=== PATIENT | male | born 2000 | race African-American/Black ===

== ENCOUNTER 2020-12-17 21:50 | Emergency (ER) | payer OTHER, MEDICAID, SELFPAY ==
[2020-12-17 22:02] VITALS: BP 132/75; PULSE 86; RESP 18; TEMP 36.6; O2SAT 99; BMI 24.4
--- NOTE | 2020-12-18 02:31 | ED_ITS ---
HPI - Headache General Chief Complaint: Headache Stated Complaint: back of head headache Time Seen by Provider: 12/18/20 02:31 Mode of arrival: Ambulatory Limitations: no limitations History of Present Illness HPI Narrative: Otherwise healthy 20-year-old gentleman with 2 full times jobs and attending college presents with a week of intermittent headaches that seem to be based at the occiput. He does not complain of fever, cough, chills, chest pain. He does note that he has been working quite a bit recently. He does not have a history of chronic headaches. He is wanting of his pillow might be contributing. He has found that occasional ibuprofen is helpful. Review of Systems Review of Systems Narrative: Remainder of complete review of systems is otherwise unremarkable except for that included in the HPI. Patient History Social History Smoking Status: Never smoker Smoking Status: Never smoker alcohol intake frequency: a few times a month Substance Use Type: does not use Exam Narrative Exam Narrative: General: Healthy appearing, in no acute distress. Able to give a complete and coherent history. Well-nourished well-developed HEENT: Moist mucous membranes, normal sclera with reactive pupils, Neck: Tenderness at the occipital insertions bilaterally with bilateral trapezius muscle spasm. Respiratory: Lungs are clear to auscultation, no wheezing no rales no rhonchi. Full and symmetrical air movement Cardiac: Regular rate and rhythm no murmurs no bruits Neurologic: Grossly neurologically intact with no obvious asymmetries or abnormalities Extremities: No trauma, well perfused Psych: Cooperative, appropriate insight and affect Initial Vital Signs Initial Vital Signs: Vital Signs Temperature 97.9 F 12/17/20 22:02 Pulse Rate 86 12/17/20 22:02 Respiratory Rate 18 12/17/20 22:02 Blood Pressure 132/75 12/17/20 22:02 Pulse Oximetry 99 12/17/20 22:02 Course Vital Signs Vital signs: Vital Signs - 8 hr 12/17/20 22:02 Temperature 97.9 F Pulse Rate 86 Respiratory Rate 18 Blood Pressure 132/75 Pulse Oximetry 99 MDM - Headache MDM Narrative Medical decision making narrative: 20-year-old gentleman presents with a week of intermittent headaches that I suspect a musculoskeletal in nature. There is no evidence of trauma, infection, acute neurologic compromise. He is tender at the occipital insertions and has paraspinous tenderness along the cervical spine and into the trapezius muscles. Had an extended wait in the emergency room and had a long nap while he was waiting for my exam and when he awoke he was completely pain free without additional medical intervention. Reviewed organ on mix, suggested pillow changes, ibuprofen and Tylenol if needed and making sure he is getting enough sleep overall. He is safe for home discharge Discharge Plan Departure Patient Disposition: Home Clinical Impression: Headache Qualifiers: Headache type: unspecified Headache chronicity pattern: acute headache Intractability: not intractable Qualified Code(s): R51.9 - Headache, unspecified Neck muscle strain Qualifiers: Encounter type: initial encounter Qualified Code(s): S16.1XXA - Strain of muscle, fascia and tendon at neck level, initial encounter Instructions: DI for Headache, DI for Muscle Spasm Activity Restrictions/Additional Instructions: Thank you for coming in today I think that your headaches are being caused by neck muscle strain. I suspect the neck muscle strain is from computer screen and phone time, and may be made worse by your current pillows. At this time there is no indication of a life-threatening cause for your he adaches. See if you can readjust the ergonomics of your computers and phone time. I would encourage you to did try different pillows and see if they help. Ice and heat to the back of your neck may prove helpful as well. Using 400 mg of ibuprofen (2 [id number] pills) and 1 Tylenol every 6 hours can be very helpful in controlling pain. I hope this helps. I wish you the best
== END 2020-12-18 02:47 | disposition home or self-care (01) ==
PROVIDERS: Emergency Provider Emergency Medicine
DX: R51.9 Headache, unspecified (principal); S16.1XXA Strain of muscle, fascia and tendon at neck level, initial encounter; X58.XXXA Exposure to other specified factors, initial encounter
CPT/HCPCS: 99281

== ENCOUNTER 2021-07-29 17:11 | Emergency (ER) | payer OTHER, MEDICAID, SELFPAY ==
[2021-07-29 17:21] VITALS: BP 137/71; PULSE 65; RESP 14; TEMP 36.8; O2SAT 100; BMI 24.4
--- NOTE | 2021-07-29 17:26 | DI.RAD.S_ITS ---
PROCEDURE: XR ANKLE LT MIN 3V INDICATIONS: left ankle injury/pain TECHNIQUE: 3 views of the ankle were acquired. COMPARISON: None. FINDINGS: Bones: No acute fractures or dislocations. Ankle mortise is normally aligned. No suspicious bony lesions. Small plantar calcaneal enthesophyte. Soft tissues: Soft tissue edema is seen surrounding the ankle, slightly more prominent medially. IMPRESSION: No acute osseous abnormality. If clinical suspicion and/or symptoms persist, additional imaging with repeat plain films, or advanced imaging (e.g. CT, MRI) may be helpful for further assessment. Dictated by: Benny Leong M.D. on 07/29/2021 at 17:57 Approved by: Benny Leong M.D. on 07/29/2021 at 17:58
--- NOTE | 2021-07-29 17:33 | DI.RAD.S_ITS ---
PROCEDURE: XR KNEE LT 3V INDICATIONS: injury/pain TECHNIQUE: 3 views of the knee were acquired. COMPARISON: None. FINDINGS: Bones: No acute fractures or dislocations. No suspicious bony lesions. Soft tissues: No joint effusion. No suspicious soft tissue calcifications. IMPRESSION: No acute osseous abnormality. If clinical suspicion and/or symptoms persist, additional imaging with repeat plain films, or advanced imaging (e.g. CT, MRI) may be helpful for further assessment. Dictated by: Benny Leong M.D. on 07/29/2021 at 17:58 Approved by: Benny Leong M.D. on 07/29/2021 at 17:59
--- NOTE | 2021-07-29 17:45 | ED_ITS ---
HPI - Extremity Injury (Lower) <MARGA Coley - Last Filed: 07/29/21 19:06> General Chief Complaint: Extremity Injury, Lower Stated Complaint: Left ankle numb, tripped Time Seen by Provider: 07/29/21 17:30 Source: patient Mode of arrival: Ambulatory History of Present Illness HPI Narrative: This is a 21-year-old male without significant medical history who presents to the emergency department complaining a left ankle injury which occurred last night while playing basketball. Patient states that he accidentally stepped on another player's foot causing his left ankle to roll, he states he has been ameya ble to bear any weight on this ankle, most of the pain is on the lateral aspect, he denies any pain on the plantar surface, states that last night he had numbness along the lateral aspect of his ankle. He took 200 mg of ibuprofen early this morning, states that he took ibuprofen last night which helped as well. He has been using ice, resting and elevating. He states he isn't able to dorsiflex very well, plantar extension without difficulty. Related Data Previous Rx's Medication Instructions Recorded hydrocodone 5 mg-acetaminophen 325 1 tab PO BID PRN #10 tab 07/29/21 mg tablet methocarbamol 500 mg tablet 500 mg PO TID PRN #14 tab 07/29/21 Allergies Allergy/AdvReac Type Severity Reaction Status Date / Time No Known Drug Allergies Allergy Verified 07/29/21 17:47 Review of Systems <MARGA Coley - Last Filed: 07/29/21 19:06> Review of Systems Narrative: General: denies fever, chills Head/Neck: denies headache, neck pain Eyes: denies visual changes, eye pain Cardio: denies chest pain, palpitations Respiratory: denies shortness of breath, cough GI: denies abdominal pain, nausea, vomiting, or diarrhea : denies dysuria, hematuria or flank pain MSK: Endorses new left ankle pain and edema on the lateral aspect, denies muscle weakness, endorses mild left knee pain as well. Skin: denies rash, itching or wound Neuro: denies numbness, tingling, dizziness Patient History <MARGA Coley - Last Filed: 07/29/21 19:06> Social History Smoking Status: Never smoker Smoking Status: Never smoker alcohol intake frequency: a few times a month Substance Use Type: does not use Exam <MARGA Coley - Last Filed: 07/29/21 19:06> Narrative Exam Narrative: Independently reviewed vitals signs and nursing notes. General: cooperative, comfortable, in no acute distress, well groomed Head: atraumatic, symmetrical facial expressions Neck: supple Eyes: equal round and reactive, EOMI, conjunctiva normal Nose: nares patent, no rhinorrhea Mouth/Throat: moist mucus membranes Cardiovascular: regular rate and rhythm, no peripheral edema, warm extremities MSK: moves all extremities, neurovascularly intact, no weakness, normal tone, left ankle with tenderness over medial and lateral malleoli, tenderness over ATFL, CFL, no tenderness over Achilles tendon, proximal 5th metatarsal, or any of the metatarsals. No tenderness on plantar aspect, patient is not able to dorsiflex foot, states it is due to pain, plantar extension is intact however. Patient was fitted in a walking boot, he tolerated this moderately with pain. He was fitted with crutches and is able to ambulate without difficulty and no weight-bearing. Skin: brisk capillary refill, no rash, no erythema Neuro: normal speech and cognition, A&O x3 Psych: mental status is grossly normal, congruent mood, normal affect, pleasant and cooperative Initial Vital Signs Initial Vital Signs: Vital Signs Temperature 98.2 F 07/29/21 17:21 Pulse Rate 65 07/29/21 17:21 Respiratory Rate 14 07/29/21 17:21 Blood Pressure 137/71 07/29/21 17:21 Pulse Oximetry 100 07/29/21 17:21 <Jennie Richardson DO - Last Filed: 07/29/21 21:56> Initial Vital Signs Initial Vital Signs: Vital Signs Temperature 98.2 F 07/29/21 17:21 Pulse Rate 65 07/29/21 17:21 Respiratory Rate 14 07/29/21 17:21 Blood Pressure 137/71 07/29/21 17:21 Pulse Oximetry 100 07/29/21 17:21 Procedures <MARGA Coley - Last Filed: 07/29/21 19:06> Orthopedic Splinting/Casting Injury #1: Side: left Lower Extremity Injury Location: ankle Lower Extremity Immobilizer: boot orthosis Other Orthopedic Equipment: crutches Post splinting neuro exam: intact and no change Post splinting vascular exam: intact Placed by: Nursing Course <MARGA Coley - Last Filed: 07/29/21 19:06> Orders Ordered: ED Orders 07/29/21 17:26 XR ankle LT min 3V Stat 07/29/21 17:33 XR knee LT 3V Stat Discontinued Medications Acetaminophen (Acetaminophen 325 Mg Tablet) 975 mg PO NOW ONE Stop: 07/29/21 17:37 Last Admin: 07/29/21 17:54 Dose: 975 mg Documented by: JOSE Ketorolac Tromethamine (Ketorolac 30 Mg/Ml Vial) 15 mg IM NOW ONE Stop: 07/29/21 17:37 Last Admin: 07/29/21 17:53 Dose: Not Given Documented by: JOSE Vital Signs Vital signs: Vital Signs - 8 hr 07/29/21 17:21 07/29/21 18:15 Temperature 98.2 F Pulse Rate 65 75 Respiratory Rate 14 18 Blood Pressure 137/71 130/70 Pulse Oximetry 100 98 <Jennie Richardson DO - Last Filed: 07/29/21 21:56> Orders Ordered: ED Orders 07/29/21 17:26 XR ankle LT min 3V Stat 07/29/21 17:33 XR knee LT 3V Stat Discontinued Medications Acetaminophen (Acetaminophen 325 Mg Tablet) 975 mg PO NOW ONE Stop: 07/29/21 17:37 Last Admin: 07/29/21 17:54 Dose: 975 mg Documented by: JOSE Ketorolac Tromethamine (Ketorolac 30 Mg/Ml Vial) 15 mg IM NOW ONE Stop: 07/29/21 17:37 Last Admin: 07/29/21 17:53 Dose: Not Given Documented by: JOSE Vital Signs Vital signs: Vital Signs - 8 hr 07/29/21 17:21 07/29/21 18:15 Temperature 98.2 F Pulse Rate 65 75 Respiratory Rate 14 18 Blood Pressure 137/71 130/70 Pulse Oximetry 100 98 MDM - Extremity Injury (Lower) <MARGA Coley - Last Filed: 06/03/22 19:06> Imaging Data Extremity x-ray #1: Radiologist's Impression: PROCEDURE:? XR KNEE LT 3V ? INDICATIONS:? injury/pain ? TECHNIQUE:? 3 views of the knee were acquired.? ? COMPARISON:? None. ? FINDINGS:? ? Bones:? No acute fractures or dislocations.? No suspicious bony lesions.? ? Soft tissues:? No joint effusion.? No suspicious soft tissue calcifications.? ? ? IMPRESSION:? No acute osseous abnormality.? If clinical suspicion and/or symptoms persist, additional imaging with repeat plain films, or advanced imaging (e.g. CT, MRI) may be helpful for further assessment. ? ? Dictated by: Benny Leong M.D. on 07/29/2021 at 17:58 ? ? Approved by: Benny Leong M.D. on 07/29/2021 at 17:59 ? Extremity x-ray #2: Radiologist's Impression: PROCEDURE:? XR ANKLE LT MIN 3V ? INDICATIONS:? left ankle injury/pain ? TECHNIQUE:? 3 views of the ankle were acquired.? ? COMPARISON:? None. ? FINDINGS:? ? Bones:? No acute fractures or dislocations.? Ankle mortise is normally aligned.? No suspicious bony lesions.? Small plantar calcaneal enthesophyte. ? Soft tissues:? Soft tissue edema is seen surrounding the ankle, slightly more prominent medially. ? ? IMPRESSION:? No acute osseous abnormality.? If clinical suspicion and/or symptoms persist, additional imaging with repeat plain films, or advanced imaging (e.g. CT, MRI) may be helpful for further assessment. ? ? ? Dictated by: Benny Leong M.D. on 07/29/2021 at 17:57 ? ? Approved by: Benny Leong M.D. on 07/29/2021 at 17:58 ? MDM Narrative Medical decision making narrative: This is a 21-year-old male who presents emergency department with left ankle aaron n after he injured his left ankle while playing basketball last night. Patient states that he accidentally stepped on another player's foot, rolled his left ankle, has had pain and swelling since and is unable to bear weight. He has tenderness to his medial and lateral malleoli, over ATFL, CFL ligaments no tenderness over proximal 5th metatarsal Achilles tendon no plantar ecchymosis, was unable to dorsiflex his left foot due to pain, plantar extension without difficulty. Left ankle x-ray shows no acute osseous abnormality, soft tissue edema is seen surrounding the ankle and more prominent on the medial aspect. Knee pain, knee x-ray was obtained for concern about proximal fibular injury and left knee x-ray shows no acute osseous abnormality either. Patient had significant tenderness in those areas listed above, he was fitted in walking boot, instructed to follow up with Orthopedics, continue nonweightbearing, use crutches for ambulation, ice, elevate, use NSAIDs and Tylenol as needed for pain control, he was fitted in an Willie wrap prior to his walking boot, tolerate all this well. He is neurovascularly intact without any numbness or sensation changes. Patient is appropriate and amenable to discharge home. Vital signs are stable on repeat examination is unremarkable. Patient has been informed of results. Patient has been given strict return to ER precautions for any new or worsening symptoms. Patient understands to follow up closely with outpatient providers as instructed. Patient understands plan and agrees to discharge home. All questions and concerns answered at this time. Discharge Plan Departure Patient Disposition: Home Clinical Impression: Ankle sprain and strain Instructions: Ankle Sprain, DI for Ankle Pain Activity Restrictions/Additional Instructions: *You have been diagnosed with an ankle sprain. These can be quite severe and limit your normal walking ability for 2-4 weeks depending on extent of ligamental tear. Please wear this walking boot and use crutches until it is not as painful to bear weight on. You can gradually start bearing weight as tolerated, if you are unable to, please follow-up with orthopedics prior to doing so. There may be a small fracture which does not show up on x-ray, or you may have a significant ligament or tendon tear that does not show x-ray. Please take ibuprofen 600 mg every 6 hours starting tomorrow as needed for pain and inflammation. Tylenol in addition to this, 600 mg every 6 hours as well. Please ice this frequently over the next few days at least 20 minutes at a time, keep it elevated all of the times that you are not walking around if you can. Please use a walking boot at all times while you are out of the house. You can use topical diclofenac gel or lidocaine patches for topical pain relief, these are available [id number]. Please call and schedule an appointment with [facility] for evaluation, you may cancel it if it is getting better. *What to do: *Please continue to take your regular medications as directed. [ x] New medication prescriptions sent to your pharmacy: [[facility] ] [ ] New medication written as a paper prescription [ ] No new medications given *Please follow up with your primary care provider in 2-3 days, call for an appointment. Let them know you were seen in the Emergency Department and that we asked that you be seen for follow-up. We will electronically transmit a record of today's note if your PCP is in our system *If you do not have a primary care provider please contact [phone] to establish care with one of the [facility] primary care providers. *Return to Emergency Department if you should have any new, worsening or concerning symptoms, such as [fever greater than 101F, chills, worsening pain, persistent vomiting or other bothersome symptoms] Prescriptions: New methocarbamol 500 mg tablet 500 mg PO TID PRN (Reason: muscle spasm) Qty: 14 0RF hydrocodone-acetaminophen 5-325 mg tablet 1 tab PO BID PRN (Reason: pain) Qty: 10 0RF Referrals: [facility] [Provider Group] - 3-5 days Visit Report Forms: Patient Portal/API <Jennie Richardson DO - Last Filed: 07/29/21 21:56> Cosign ED Attending Chanell Attestation: I was immediately available in the department for consultation. Documentation has been reviewed. I agree with assessment and plan.
[2021-07-29] MEDS: ACETAMINOPHEN 325 MG TABLET 975 MG PO (17:54)
[2021-07-29 18:15] VITALS: BP 130/70; PULSE 75; RESP 18; O2SAT 98
== END 2021-07-29 18:34 | disposition home or self-care (01) ==
PROVIDERS: Emergency Provider Nurse Practitioner Critical Care Medicine
DX: S93.402A Sprain of unspecified ligament of left ankle, initial encounter (principal); S96.912A Strain of unspecified muscle and tendon at ankle and foot level, left foot, initial encounter; X50.1XXA Overexertion from prolonged static or awkward postures, initial encounter; Y93.67 Activity, basketball
CPT/HCPCS: 29580; 73562; 73610; 99283; 99284